=== PATIENT | female | born 1970 | race Caucasian/White ===

== ENCOUNTER 2022-07-22 11:35 | Day surgery (SDC) | payer BC, OTHER ==
[~2022-07-22 11:35] MED LIST: Lactated Ringers 1,000 ML IV SCH
[2022-07-22] MEDS ORDERED: Lidocaine 2% 5 ML SDV ONE ×2 (11:44→12:49)
[2022-07-22] MEDS ORDERED: Propofol 200 MG/20 ML SDV ONE ×2 (11:45→12:50)
[2022-07-22] MEDS ORDERED: fentaNYL 100 MCG/2 ML SDV ONE (11:45)
[2022-07-22] MEDS ORDERED: Lactated Ringers 1,000 ML IV SCH (13:15)
== END 2022-07-22 13:38 | disposition home or self-care (01) ==
LOC: MW.SDS 11:35
PROVIDERS: ATTEND Surgery
DX: K29.50 Unspecified chronic gastritis without bleeding (principal); K31.89 Other diseases of stomach and duodenum; K29.00 Acute gastritis without bleeding; G43.109 Migraine with aura, not intractable, without status migrainosus; F32.A Depression, unspecified; K21.9 Gastro-esophageal reflux disease without esophagitis; I10 Essential (primary) hypertension; Z79.899 Other long term (current) drug therapy; Z98.0 Intestinal bypass and anastomosis status; Z98.84 Bariatric surgery status; Z88.1 Allergy status to other antibiotic agents; Z87.11 Personal history of peptic ulcer disease; Z98.890 Other specified postprocedural states; Z87.891 Personal history of nicotine dependence; Z88.0 Allergy status to penicillin
CPT/HCPCS: 43239; J2704; J7120; J3010; J3490

== ENCOUNTER 2024-08-27 10:27 | Emergency (ER) | payer OTHER ==
[2024-08-27] MEDS: Sodium Chloride 0.9% 1,000 ML IV ONE (11:35)
[2024-08-27] MEDS: diphenhydrAMINE 50 MG/ML SDV IVPUSH ONE (11:36)
[2024-08-27] MEDS: Ketorolac 30 MG/ML SDV IVPUSH ONE (11:36)
[2024-08-27] MEDS: Famotidine 20 MG/2 ML SDV IVPUSH ONE (11:36)
[2024-08-27] MEDS: methylPREDNISolone Sodium Succinate 125 MG/2 ML SDV IVPUSH ONE (11:36)
[2024-08-27 11:58] LABS: APPEARANCE,URINE CLEAR; BILIRUBIN,URINE NEGATIVE (NEGATIVE); COLOR,URINE YELLOW; GLUCOSE,URINE NEGATIVE (NEGATIVE); KETONES,URINE NEGATIVE (NEGATIVE); LEUKOCYTE ESTERASE,URINE NEGATIVE (NEGATIVE); NITRITE,URINE NEGATIVE (NEGATIVE); OCCULT BLOOD,URINE NEGATIVE (NEGATIVE); PROTEIN,URINE NEGATIVE (NEGATIVE)
[2024-08-27 11:58] LABS: BASOPHILS ABSOLUTE AUTO 0.08 K/uL (0.00-0.20); BASOPHILS PERCENT AUTO 1.1 % (0.0-1.0); EOSINOPHILS ABSOLUTE AUTO 0.13 K/uL (0.00-0.45); EOSINOPHILS PERCENT AUTO 1.8 % (0.0-6.0); HEMOGLOBIN 13.3 g/dL (12.0-16.0); IMMATURE GRAN ABSOLUTE AUTO 0.04 K/uL (0.00-0.05); IMMATURE GRAN PERCENT AUTO 0.5 % (0.0-0.4); LYMPHOCYTES ABSOLUTE AUTO 1.31 K/uL (1.00-4.80); LYMPHOCYTES PERCENT AUTO 17.8 % (24.0-44.0); MEAN CORPUSCULAR HEMOGLOBIN 30.2 pg (28.0-32.0); MEAN CORPUSCULAR HGB CONC 33.3 g/dL (32.0-36.0); MEAN CORPUSCULAR VOLUME 90.9 fL (83.0-99.0); MEAN PLATELET VOLUME 9.5 fL (9.4-12.3); MONOCYTES ABSOLUTE AUTO 0.53 K/uL (0.00-0.80); MONOCYTES PERCENT AUTO 7.2 % (0.0-8.0); NEUTROPHILS ABSOLUTE AUTO 5.28 K/uL (1.80-7.70); NEUTROPHILS PERCENT AUTO 71.6 % (41.0-71.0); PLATELET COUNT,PLT 296 K/uL (150-400); WHITE BLOOD CELL COUNT,WBC 7.37 K/uL (3.9-11.3)
[2024-08-27 12:10] LABS: A/G RATIO 1.3 (0.9-1.6); ALBUMIN 3.6 g/dL (3.4-5.0); BILIRUBIN TOTAL 0.6 mg/dL (0.2-1.0); CALCIUM 8.3 mg/dL (8.5-10.1); CARBON DIOXIDE,CO2 24.5 mmol/L (21.0-32.0); CREATININE 0.6 mg/dL (0.6-1.0); EST CRCL DRUG DOSING (CG) 86.75 mL/min; MAGNESIUM 2.1 mg/dL (1.8-2.4); POTASSIUM,K 4.1 mmol/L (3.5-5.1); PROTEIN TOTAL,TP 6.4 g/dL (6.4-8.2)
== END 2024-08-27 13:56 | disposition home or self-care (01) ==
LOC: MW.ED 10:27
DX: T78.49XA Other allergy, initial encounter (principal); N76.0 Acute vaginitis; B37.9 Candidiasis, unspecified; I10 Essential (primary) hypertension; K21.9 Gastro-esophageal reflux disease without esophagitis; Z88.0 Allergy status to penicillin; Z88.8 Allergy status to other drugs, medicaments and biological substances; Z79.899 Other long term (current) drug therapy
CPT/HCPCS: 36415; 80053; 81003; 83690; 83735; 85025; 87651; 96361; 96374; 96375; 99284; J1200; J1885; J2919; J7030; 99283